=== PATIENT | female | born 1960 | race Hispanic/Latino ===

== ENCOUNTER 2020-10-01 17:32 | Observation (INO) | payer OTHER ==
[~2020-10-01] VITALS: Ht 154.9 cm; Wt 77.1 kg
[2020-10-01 17:33] VITALS: BP 124/71
[2020-10-01 18:43] VITALS: BP 119/64
[2020-10-01 18:55] LABS: BASOPHILS % (AUTO) 0.5 % (0.0-5.0); EOSINOPHILS % (AUTO) 1.6 % (0.0-8.0); HEMATOCRIT 39.7 % (36-48); LYMPHOCYTES % (AUTO) 44.5 % (21.0-51.0); MEAN CORPUSCULAR HEMOGLOBIN 31.2 pg (27.0-33.0); MEAN CORPUSCULAR VOLUME 89.2 fL (79-99); MONOCYTES % (AUTO) 6.6 % (3.0-13.0); NEUTROPHILS % (AUTO) 46.6 % (40.0-77.0); PLATELET COUNT (AUTO) 233 K/uL (130-400); RED BLOOD CELL COUNT(AUTO) 4.45 MIL/uL (4.00-5.50); RED CELL DISTRIBUTION WIDTH 12.5 % (11.0-15.5); WHITE BLOOD COUNT (AUTO) 5.6 K/uL (4.8-10.8)
[2020-10-01 19:06] LABS: CREATININE 0.8 mg/dL (0.5-1.5); POTASSIUM 3.7 mmol/L (3.5-5.1)
[2020-10-01 19:10] LABS: APPEARANCE,URINE Clear (CLEAR); BILIRUBIN,URINE Negative (NEGATIVE); COLOR,URINE Yellow (YELLOW); GLUCOSE, URINE (UA) Negative (NEGATIVE); KETONES,URINE Negative (NEGATIVE); LEUKOCYTE ESTERASE ,URINE Negative (NEGATIVE); NITRATE,URINE Negative (NEGATIVE); OCCULT BLOOD,URINE Negative (NEGATIVE); PROTEIN,URINE Negative (NEGATIVE); UROBILINOGEN,URINE 0.2 mg/dL (0.2-1.0)
[2020-10-01 19:10] LABS: ALBUMIN 3.4 g/dL (3.5-5.0); BILIRUBIN,TOTAL 0.6 mg/dL (0.2-1.0); MAGNESIUM 2.2 mg/dL (1.80-2.40)
[2020-10-01 19:16] LABS: B-TYPE NATRIURETIC PEPTIDE 11 pg/mL (0-100)
[2020-10-01 19:21] LABS: INR 0.94 (0.85-1.15); PROTHROMBIN TIME 10.3 SEC (9.6-11.6)
[2020-10-01 19:23] LABS: TOTAL PROTEIN, SERUM 7.8 g/dL (6.0-8.3)
[2020-10-01 20:13] VITALS: BP 130/60
[2020-10-01] MEDS ORDERED: ONDANSETRON 4MG INJ IV PRN (21:30)
[2020-10-01] MEDS ORDERED: MORPHINE 4 MG SYG IV PRN (21:30)
[2020-10-01 21:59] LABS: CHOLESTEROL 253 mg/dL (<200); CREATINE KINASE, TOTAL 99 U/L (21-232); HDL CHOLESTEROL 33 mg/dL (35-85); LDL DIRECT 106 mg/dL (0-99); MYOGLOBIN 22 ng/mL (10-92); PHOSPHORUS 4.3 mg/dL (2.5-4.9); TRIGLYCERIDES 941 mg/dL (30-200); TROPONIN I < 0.04 ng/mL (0.00-0.06)
[2020-10-01] MEDS: NITROGLYCERIN 1GM OINT 1 INCH/1GM TD SCH (22:27)
[2020-10-01 22:32] LABS: ABG BASE EXCESS 0.7 mmol/L (-2.0-3.0); ABG HCO3 25.5 mmol/L (21.0-28.0); ABG OXYGEN SATURATION 96.6 % (95.0-99.0); ABG PCO2 41 mmHg (32-45)
[2020-10-01 22:54] VITALS: BP 137/70
[2020-10-02 02:29] VITALS: BP 107/67
[2020-10-02 05:08] VITALS: BP 101/57
[2020-10-02] MEDS: NITROGLYCERIN 1GM OINT 1 INCH/1GM TD SCH (05:30)
[2020-10-02] MEDS: HYDROCODONE/ACETAMINOPHEN 5/325 MG TAB PO PRN ×2 (06:01→13:48)
[2020-10-02] MEDS ORDERED: LEVOTHYROXINE 25 MCG TABLET PO SCH (06:30)
[2020-10-02 06:34] VITALS: BP 102/60
[2020-10-02 06:40] LABS: BASOPHILS % (AUTO) 0.4 % (0.0-5.0); EOSINOPHILS % (AUTO) 2.1 % (0.0-8.0); HEMATOCRIT 38.1 % (36-48); LYMPHOCYTES % (AUTO) 52.2 % (21.0-51.0); MEAN CORPUSCULAR HGB CONC 33.3 g/dL (32.0-36.0); MEAN CORPUSCULAR VOLUME 90.1 fL (79-99); NEUTROPHILS % (AUTO) 37.1 % (40.0-77.0); PLATELET COUNT (AUTO) 186 K/uL (130-400); RED BLOOD CELL COUNT(AUTO) 4.23 MIL/uL (4.00-5.50); RED CELL DISTRIBUTION WIDTH 12.3 % (11.0-15.5); WHITE BLOOD COUNT (AUTO) 4.8 K/uL (4.8-10.8)
[2020-10-02 06:55] LABS: INR 1.02 (0.85-1.15); PROTHROMBIN TIME 11.1 SEC (9.6-11.6)
[2020-10-02 06:57] LABS: PARTIAL THROMBOPLASTIN TIME 24.5 SEC (26.3-35.5)
[2020-10-02 07:01] LABS: CARBON DIOXIDE 27 mmol/L (21-32); CHLORIDE 107 mmol/L (101-111); CREATINE KINASE, TOTAL 85 U/L (21-232); CREATININE 0.8 mg/dL (0.5-1.5); GLOMERULAR FILTR. RATE CALC 78 mL/min (>60); GLUCOSE,RANDOM 110 mg/dL (70-105); MYOGLOBIN 29 ng/mL (10-92); POTASSIUM 4.2 mmol/L (3.5-5.1); SODIUM SERUM 142 mmol/L (136-145); TROPONIN I < 0.04 ng/mL (0.00-0.06); UREA NITROGEN, BLOOD 14 mg/dL (7-18)
[2020-10-02 07:29] VITALS: BP 117/71
[2020-10-02] MEDS ORDERED: FAMOTIDINE 20MG VIAL IV SCH (09:00)
[2020-10-02] MEDS ORDERED: ENOXAPARIN SODIUM 40 MG/0.4 ML SYRINGE SQ SCH (09:00)
[2020-10-02] MEDS ORDERED: CARVEDILOL 3.125 MG TABLET PO SCH (09:00)
[2020-10-02] MEDS ORDERED: ATOR10 PO (11:08)
[2020-10-02 12:03] VITALS: BP 114/65
[2020-10-02] MEDS ORDERED: FENOFIBRATE NANOCRYSTALLIZED 145 MG TAB PO SCH (21:00)
== END 2020-10-02 15:42 | disposition home or self-care (01) ==
LOC: EDH 17:32 → EDHIP 17:33
PROVIDERS: ADMIT Internal Medicine; ATTEND Internal Medicine
DX: R07.89 Other chest pain (principal); Z20.822 Contact with and (suspected) exposure to COVID-19; E03.9 Hypothyroidism, unspecified; I49.3 Ventricular premature depolarization; E78.1 Pure hyperglyceridemia; R79.89 Other specified abnormal findings of blood chemistry; Z79.899 Other long term (current) drug therapy; Z98.51 Tubal ligation status; Z98.890 Other specified postprocedural states
CPT/HCPCS: 36415 ×2; 36600; 71045; 80048; 80053; 80061; 81003; 82435; 82550 ×3; 82803; 82947; 83605; 83735 ×2; 83874 ×2; 83880; 84100; 84132; 84145; 84295; 84439; 84443; 84481; 84484 ×3; 85018; 85025 ×2; 85610 ×2; 85730; 87635; 93005; 96372; 96374; 99285; C9803; G0378 ×19; J1650; J3490